=== PATIENT | male | born 1970 | race African-American/Black ===

== ENCOUNTER → 2017-02-11 | Outpatient (CLI) | payer OTHER, MEDICAID ==
[2014-09-21 14:05] VITALS: BP 122/66
== END ==
LOC: LAB 10:08
PROVIDERS: ATTEND Internal Medicine
DX: Z86.711 Personal history of pulmonary embolism (principal)
CPT/HCPCS: 36415; 85610

== ENCOUNTER → 2017-03-09 | Outpatient (CLI) | payer OTHER, MEDICAID ==
[2014-09-21 14:05] VITALS: BP 122/66
== END ==
LOC: LAB 09:25
PROVIDERS: ATTEND Internal Medicine
DX: Z79.01 Long term (current) use of anticoagulants (principal)
CPT/HCPCS: 36415; 85610

== ENCOUNTER → 2017-04-06 | Outpatient (CLI) | payer OTHER, MEDICAID ==
[2014-09-21 14:05] VITALS: BP 122/66
== END ==
LOC: LAB 09:25
PROVIDERS: ATTEND Internal Medicine
DX: Z79.01 Long term (current) use of anticoagulants (principal)
CPT/HCPCS: 36415; 85610

== ENCOUNTER 2017-04-26 10:16 | Emergency (ER) | payer OTHER, MEDICAID ==
[2017-04-26 10:23] VITALS: BP 133/85; BMI 26.9
--- NOTE | 2017-04-26 11:01 | DR.UPM ---
HPI - Time Seen Time seen: 10:55 - PCP Primary Care Physician: АННА - Complaint Chief Complaint Doctors Comments: Patient denies history of kidney stones but has had uti in the past. he also conplains of constipation. Chief Complaint:: PT. C/O OF DECREASED URINATION X 1 WEEK AND STATES WHEN HE URINATED THIS MORNING, HE HAD BLOOD COMING FROM HIS PENIS. PT. DENIES PAIN. - Source History Provided: Patient - Mode of Arrival Mode of Arrival: Wheelchair - Timing Onset of Chief Complaint: 04/19/17 PMH - PMH Past Medical History: Yes Past Medical History: CVA Past Surgical History: Yes Surgical History: Other - Family History History of Family Medical Conditions: Yes Family Medical History: Hypertension - Social History Does patient currently use any type of tobacco product: No Have you used tobacco products in the last 12 months: No Type of Tobacco Use: None Does any household member use tobacco: No Alcohol Use: None Do you use any recreational Drugs:: No Lives With: Family Lives Where: Home - infectious screening In the last 2 months have you had wt loss of >10#?: NO Have you had fever, night sweats or hemotysis?: No Have you traveled outside the country in the last 6 months?: No Isolation: Standard ROS - Review of Systems Eyes: No Symptoms Reported ENTM: No Symptoms Reported Respiratoy: No Symptoms Reported Cardiovascular: No Symptoms Reported Gastrointestinal/Abdominal: Constipation Genitourinary: No Symptoms Reported Neurological: No Symptoms Reported Musculoskeletal: No Symptoms Reported, Other (left hemiplegia) Integumentary: No Symptoms Reported Hematologic/Lymphatic: No Symptoms Reported Endocrine: No Symptoms Reported Psychiatric: No Symptoms Reported All Other Systems: Reviewed and Negative PE - Vital Signs Vitals: Temperature 100.8 F Pulse Rate 108 Respiratory Rate 17 Blood Pressure 133/85 O2 Sat by Pulse Oximetry 97 Course - Reevaluation 1st: Improved ROR - Labs Reviewed Laboratory Results Reviewed?: Yes (UA: leuk 3+,Rbc 20-25; WBC 25-30) Laboratory: Specimen Type Clean catch urine 04/26/17 10:40 Urine Color Dark yellow (YELLOW) 04/26/17 10:40 Urine Appearance Hazy (CLEAR) 04/26/17 10:40 Urine pH 5.0 (5.0 - 8.0) 04/26/17 10:40 Ur Specific Craig 1.020 (1.000-1.030) 04/26/17 10:40 Urine Protein 3+ (NEGATIVE) 04/26/17 10:40 Urine Glucose (UA) 1+ (NEGATIVE) 04/26/17 10:40 Urine Ketones Negative (NEGATIVE) 04/26/17 10:40 Urine Occult Blood 5+ (NEGATIVE) 04/26/17 10:40 Urine Nitrite Negative (NEGATIVE) 04/26/17 10:40 Urine Bilirubin Negative (NEGATIVE) 04/26/17 10:40 Urine Urobilinogen Normal (NORMAL) 04/26/17 10:40 Ur Leukocyte Esterase 3+ (NEGATIVE) 04/26/17 10:40 Urine RBC 20-25 /HPF (NEGATIVE) 04/26/17 10:40 Urine WBC 25-30 /HPF (NEGATIVE) 04/26/17 10:40 Ur Squamous Epith Cells Rare /HPF (NEGATIVE) 04/26/17 10:40 Urine Bacteria Trace /HPF (NEGATIVE) 04/26/17 10:40 Urine Mucus Few /HPF (NEGATIVE) 04/26/17 10:40 Ur Culture Indicated? Yes/culture set up 04/26/17 10:40 - XRAY XRAY Interpreted by: Radiologist (CT Abd/Pelv: No ureteral calculi are identified. There are no findings suggestive of diverticulitis or colitis. Examination of the pelvis demonstrated no evidence for for bladder calculi. There diffuse thickening of the bladder wall with some perivesical inflammatory change. Cystitis should be clinically excluded. The prostate is enlarged measuring 5.5x5x5.4 centimeters. No pelvic masses, velvic fluid, or pelvic lymphadenopathy is identified. No lytic or blastic skeletal lesions are identified.) - Diagnosis Discharge Problem: Cystitis, Prostatic hypertrophy - Discharge Plan Condition: Stable - Follow ups/Referrals Follow ups/Referrals: GLEN JJ [Primary Care Provider] - 3 days - Instructions
[2017-04-26 11:07] LABS: BILIRUBIN,URINE NEGATIVE (NEGATIVE); BLOOD/HEMOGLOBIN,URINE 5+ (NEGATIVE); GLUCOSE, URINE 1+ (NEGATIVE); KETONES,URINE NEGATIVE (NEGATIVE); LEUKOCYTE ESTERASE ,URINE 3+ (NEGATIVE); NITRITES,URINE NEGATIVE (NEGATIVE); PROTEIN,URINE 3+ (NEGATIVE); UROBILINOGEN,URINE NORMAL (NORMAL)
[2017-04-26 11:19] LABS: APPEARANCE,URINE HAZY (CLEAR); BACTERIA,URINE TRACE /HPF (NEGATIVE); COLOR,URINE DARK YELLOW (YELLOW); RBC,URINE 20-25 /HPF (NEGATIVE); SQUAMOUS EPITHELIAL CELL,UR RARE /HPF (NEGATIVE)
[2017-04-26 11:20] LABS: MUCUS,URINE FEW /HPF (NEGATIVE)
--- NOTE | 2017-04-26 12:24 | CT ---
HISTORY: Hematuria Study: CT abdomen pelvis without contrast Comparison: None Technique: Axial non contrast images with coronal and sagittal reformats. Dose reduction procedures were used with MA/kv adjusted for body size. Findings: The lung bases are clear. The liver, spleen, adrenal glands, and pancreas are within normal limits t o the limitations of an unenhanced examination. No opaque stones are visible within the gallbladder. The kidneys are unobstructed and without stones. No ureteral calculi are identified. The appendix i s normal. There are no findings suggestive of diverticulitis or colitis. Examination of the pelvis d emonstrated no evidence for bladder calculi. There is diffuse thickening of the bladder wall with so me perivesical inflammatory change. Cystitis should be clinically excluded. The prostate is enlarged measuring 5.5 x 5 by 5.4 centimeters. No pelvic masses, pelvic fluid, or pelvic lymphadenopathy is identified. No lytic or blastic skeletal lesions are identified. IMPRESSION: No evidence for obstructing renal or ureteral calculi Normal appendix Diffuse thickening of the bladder wall with what appears to be mild perivesical inflammation. Acute cystitis should be clinically excluded. Enlarged prostate Reported By:
== END 2017-04-26 13:02 | disposition home or self-care (01) ==
LOC: ER 10:24
DX: N30.90 Cystitis, unspecified without hematuria (principal); N40.0 Benign prostatic hyperplasia without lower urinary tract symptoms; B96.29 Other Escherichia coli [E. coli] as the cause of diseases classified elsewhere
CPT/HCPCS: 74176; 81001; 87086; 87088; 87186; 99283

== ENCOUNTER → 2017-06-10 | Outpatient (CLI) | payer OTHER, MEDICAID | LOC: LAB 09:35 | PROVIDERS: ATTEND Internal Medicine | DX: Z79.01 Long term (current) use of anticoagulants (principal) | CPT/HCPCS: 36415; 85610 ==

== ENCOUNTER → 2017-07-15 | Outpatient (CLI) | payer OTHER, MEDICAID | LOC: LAB 09:38 | PROVIDERS: ATTEND Internal Medicine | DX: Z79.01 Long term (current) use of anticoagulants (principal) | CPT/HCPCS: 36415; 85610 ==

== ENCOUNTER → 2017-08-05 | Outpatient (CLI) | payer OTHER, MEDICAID ==
--- NOTE | 2017-08-05 11:31 | RAD ---
HISTORY: Nontraumatic right shoulder pain Study: Right shoulder internal, external, Y-view Comparison: None Findings: The appearance of the clavicle and AC joint are unremarkable. The glenohumeral articulation is taniya l in its appearance. No acute cortical disruption or dislocation can be identified. The visualized portions of the scapula are unremarkable. In addition, the visualized portions of the right hemithor ax appear normal. IMPRESSION: 1. Negative exam. Reported By:
--- NOTE | 2017-08-05 11:32 | RAD ---
HISTORY: Cervicalgia, neck pain Study: Three view cervical spine Comparison: None Findings: Normal cervical alignment. Vertebral body heights are preserved. Prevertebral soft tissues are normal . Mild multilevel cervical spondylosis, facet arthropathy and uncovertebral spurring is noted most pr ominent at C5-C6 and C6-C7. The visualized odontoid process appears intact. No evidence of acute frac ture or subluxation. IMPRESSION: 1. Cervical degenerative changes as described without acute osseous abnormality. Reported By:
--- NOTE | 2017-08-05 11:32 | RAD ---
HISTORY: Left shoulder pain, nontraumatic Study: Left shoulder internal, external, Comparison: None Findings: The appearance of the clavicle and AC joint are unremarkable. The glenohumeral articulation is taniya l in its appearance. No acute cortical disruption or dislocation can be identified. The visualized portions of the scapula are unremarkable. In addition, the visualized portions of the left hemithora x appear normal. IMPRESSION: 1. Negative exam. Reported By:
--- NOTE | 2017-08-05 11:33 | RAD ---
HISTORY: Back pain Study: Lumbar spine AP, lateral, spot Comparison: None Findings: Normal alignment of the lumbar spine is maintained. The posterior elements appear unremarkable in th eir appearance. The disk space height is maintained without significant endplate sclerosis. No evid ence for acute fracture can be identified. The SI joints are normal. IMPRESSION: 1. Negative exam. Reported By:
== END | disposition home or self-care (01) | DRG 552 ==
LOC: RAD 09:42
PROVIDERS: ATTEND Anesthesiology Pain Medicine
DX: M54.2 Cervicalgia (principal); M25.511 Pain in right shoulder; M25.512 Pain in left shoulder
CPT/HCPCS: 72040; 72100; 73030

== ENCOUNTER → 2017-08-12 | Outpatient (CLI) | payer OTHER, MEDICAID | LOC: LAB 09:38 | PROVIDERS: ATTEND Internal Medicine | DX: Z79.01 Long term (current) use of anticoagulants (principal) | CPT/HCPCS: 36415; 85610 ==

== ENCOUNTER → 2017-09-16 | Outpatient (CLI) | payer OTHER, MEDICAID ==
[2017-09-16 10:09] LABS: BASOPHILS # (AUTO) 0.1 X10^3/uL (0.0-0.1); BASOPHILS % (AUTO) 2.2 % (0.2-1.0); EOSINOPHILS % (AUTO) 1.3 % (0.9-2.9); HEMATOCRIT 42.7 % (42.0-54.0); LYMPHOCYTES # (AUTO) 1.1 X10^3/uL (1.3-2.9); LYMPHOCYTES % (AUTO) 35.6 % (21.0-51.0); MEAN CORPUSCULAR HEMOGLOBIN 23.8 pg (27.0-34.0); MEAN CORPUSCULAR HGB CONC 32.8 g/dL (33.0-35.0); MEAN CORPUSCULAR VOLUME 72.6 fL (80.0-100.0); MEAN PLATELET VOLUME 8.5 fL (7.4-11.0); MONOCYTES # (AUTO) 0.3 x10^3/uL (0.3-0.8); MONOCYTES % (AUTO) 9.3 % (0.0-13.0); NEUTROPHILS # (AUTO) 1.6 x10^3/uL (2.2-4.8); NEUTROPHILS % (AUTO) 51.6 % (42.0-75.0); PLATELET COUNT 169 X10^3/uL (150.0-450.0); RED BLOOD COUNT 5.88 X10^6/uL (4.7-6.0); RED CELL DISTRIBUTION WIDTH 14.7 % (11.6-16.5); WHITE BLOOD COUNT 3.2 X10^3/uL (3.6-10.0)
[2017-09-16 10:18] LABS: ALANINE AMINOTRANSFERASE 26 Units/L (12-78); ALBUMIN 3.6 g/dL (3.4-5.0); ALKALINE PHOSPHATASE 51 Units/L (46-116); ASPARTATE AMINO TRANSFERASE 22 Units/L (15-37); BLOOD UREA NITROGEN 15 mg/dL (7-18); CALCIUM 8.5 mg/dL (8.5-10.1); CARBON DIOXIDE 28.7 mmol/L (21-32); CHLORIDE 104 mmol/L (98-107); CHOL/HDL RATIO 3.2 (0.0-5.0); CHOLESTEROL 162 mg/dL (0-200); CREATINE KINASE 410 Units/L (39-308); CREATININE 1.29 mg/dL (0.70-1.30); HDL CHOLESTEROL 50 mg/dL (40-60); SODIUM 137 mmol/L (136-145); TOTAL PROTEIN 7.3 g/dL (6.4-8.2); TRIGLYCERIDES 93 mg/dL (0-150); eGFR BLACK RACES > 60 (>60); eGFR NON BLACK RACES > 60 (>60)
[2017-09-16 10:45] LABS: PLATELET MORPHOLOGY COMMENT NORMAL (NORMAL)
[2017-09-16 10:58] LABS: HYPOCHROMASIA SLIGHT
== END ==
LOC: LAB 09:38
PROVIDERS: ATTEND Internal Medicine
DX: Z79.899 Other long term (current) drug therapy (principal); E78.4 Other hyperlipidemia; Z86.711 Personal history of pulmonary embolism
CPT/HCPCS: 36415; 80053; 80061; 82550; 85025; 85610; 86140

== ENCOUNTER → 2017-10-14 | Outpatient (CLI) | payer OTHER, MEDICAID | LOC: LAB 09:33 | PROVIDERS: ATTEND Internal Medicine | DX: Z86.711 Personal history of pulmonary embolism (principal) | CPT/HCPCS: 36415; 85610 ==

== ENCOUNTER → 2018-02-10 | Outpatient (CLI) | payer OTHER, MEDICAID | LOC: LAB 09:42 | PROVIDERS: ATTEND Internal Medicine | DX: Z86.711 Personal history of pulmonary embolism (principal); R79.1 Abnormal coagulation profile | CPT/HCPCS: 36415; 85610 ==

== ENCOUNTER → 2018-03-15 | Outpatient (CLI) | payer OTHER, MEDICAID | LOC: LAB 09:46 | PROVIDERS: ATTEND Internal Medicine | DX: Z86.711 Personal history of pulmonary embolism (principal); R79.1 Abnormal coagulation profile | CPT/HCPCS: 36415; 85610 ==

== ENCOUNTER → 2018-04-07 | Outpatient (CLI) | payer OTHER, MEDICAID | LOC: LAB 09:44 | PROVIDERS: ATTEND Internal Medicine | DX: Z86.711 Personal history of pulmonary embolism (principal) | CPT/HCPCS: 36415; 85610 ==